=== PATIENT | female | born 1975 | race Caucasian/White ===

== ENCOUNTER → 2017-06-24 | Outpatient (CLI) | payer BC ==
--- NOTE | 2017-06-24 13:05 | XR ---
EXAMINATION TYPE: XR ankle complete RT DATE OF EXAM: 06/24/2017 CLINICAL HISTORY: Right ankle pain after a fall one week ago TECHNIQUE: Frontal, lateral and oblique images of the right ankle are obtained. COMPARISON: None. FINDINGS: There is no acute fracture/dislocation evident in the right ankle. Os trigonum is inciden tally noted The ankle mortise appears within normal limits. The overlying soft tissue appears unrema rkable. IMPRESSION: There is no acute fracture or dislocation in the right ankle.
--- NOTE | 2017-06-24 13:08 | XR ---
EXAMINATION TYPE: XR foot complete RT DATE OF EXAM: 06/24/2017 COMPARISON: NONE HISTORY: Fracture Right foot TECHNIQUE: 3 views right foot FINDINGS: No acute fractures are identified. Subacute fractures are not evident. Soft tissues are nor mal. Plantar arch is normal. IMPRESSION: 1. No acute osseous abnormality. 2. Follow-up exams can be performed 7-10 days from acute trauma for continued pain.
== END ==
LOC: RADXRMAIN 12:38
PROVIDERS: ATTEND Physical Medicine & Rehabilitation
DX: M84.674 Pathological fracture in other disease, right foot (principal)